=== PATIENT | male | born 1990 | race Caucasian/White ===

== ENCOUNTER 2017-07-29 08:09 | Day surgery (SDC) | payer BC ==
[~2017-07-29 08:09] MED LIST: DIPHENHYDRAMINE HCL 50 MG/ML VIAL ONE; EPINEPHRINE INJ 1 MG/10 ML DISP.SYRIN ONE; FLUMAZENIL INJ 0.5 MG/5 ML VIAL ONE; GLUCAGON,HUMAN RECOMB 1 MG INJ ONE; NALOXONE HCL INJ/PF 0.4 MG/1 ML SDV ONE; ONDANSETRON HCL INJ/PF 4 MG/2 ML SDV ONE
[2017-07-29] MEDS: MIDAZOLAM 2 MG/2 ML INJ ONE ×3 (08:30→08:38)
[2017-07-29] MEDS: FENTANYL CITRATE INJ/PF 100 MCG/2 ML AMPUL ONE ×2 (08:32→08:36)
--- NOTE | 2017-07-29 08:43 | Operative Report ---
Operative Report DATE OF SURGERY: 07/29/17 Operative Report: The risks benefits and alternatives of the procedure explained to the patient in detail and informed consent is obtained.A GIF Olympus video scope was inserted into the patient's mouth and hypopharynx, the esophagus is identified intubated and insufflated, the scope was then advanced through the esophagus stomach and duodenum, retroflexion maneuver is done, the esophagus stomach and first and second portions of the duodenum examined PREOPERATIVE DIAGNOSIS: Gastroesophageal reflux disease POSTOPERATIVE DIAGNOSIS: Esophagitis versus Purcell's status post biopsy. Gastritis status post biopsy rule out Helicobacter pylori OPERATION: EGD with biopsy SURGEON: ERIKA CHAUHAN ANESTHESIA: Moderate Sedation - 6 mg of Versed, 125 mcg of fentanyl. Conscious sedation monitoring time 30 minutes. TISSUE REMOVED OR ALTERED: As noted above. COMPLICATIONS: None. ESTIMATED BLOOD LOSS: None. INTRAOPERATIVE FINDINGS: As noted above. PROCEDURE: Patient tolerated the procedure well. No immediate postprocedure complications are noted. Patient discharged in good condition. Discharge date 07/29/2018. Discharge diet: Regular. Discharge activity: Regular. 2-3 week follow-up to discuss findings. Patient is instructed to call the office or proceed to the emergency room should there be any further problems or questions. We will wait on pathology.
[2017-07-29 09:54] VITALS: BP 101/63
== END 2017-07-29 09:55 | disposition home or self-care (01) ==
LOC: END 08:09
PROVIDERS: ATTEND Internal Medicine Gastroenterology
PROC: 0DB48ZX Excision of Esophagogastric Junction, Via Natural or Artificial Opening Endoscopic, Diagnostic (ICD-10-PCS; 2017-07-29)
PROC: 0DB68ZX Excision of Stomach, Via Natural or Artificial Opening Endoscopic, Diagnostic (ICD-10-PCS; principal; 2017-07-29 08:30)
DX: K29.50 Unspecified chronic gastritis without bleeding (principal); K21.9 Gastro-esophageal reflux disease without esophagitis; Z79.899 Other long term (current) drug therapy
CPT/HCPCS: 43239; 88305 ×2; J2250; J3010; J0171; J1200; J1610; J2310; J2405; J3490

== ENCOUNTER 2017-08-24 10:29 | Day surgery (SDC) | payer BC ==
[~2017-08-24 10:29] MED LIST changes: -DIPHENHYDRAMINE HCL 50 MG/ML VIAL ONE; -EPINEPHRINE INJ 1 MG/10 ML DISP.SYRIN ONE; -FLUMAZENIL INJ 0.5 MG/5 ML VIAL ONE; -GLUCAGON,HUMAN RECOMB 1 MG INJ ONE; -NALOXONE HCL INJ/PF 0.4 MG/1 ML SDV ONE; -ONDANSETRON HCL INJ/PF 4 MG/2 ML SDV ONE; +PROPOFOL INJ 200 MG/20 ML VIAL IV ONE
[2017-08-24] MEDS ORDERED: PROPOFOL INJ 200 MG/20 ML VIAL IV ONE (12:12)
[2017-08-24 12:46] VITALS: BP 122/86
--- NOTE | 2017-08-24 13:10 | Operative Report ---
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 COMPLICATIONS: None. ESTIMATED BLOOD LOSS: None. INTRAOPERATIVE FINDINGS: As noted above. PROCEDURE: Patient tolerated procedure well. No immediate postprocedure complications are noted. Patient discharged in good condition. Discharge date 08/24/2017. Discharge diet: Regular. Discharge activity: Regular. 2-3 week follow-up to discuss findings. Patient is instructed to call the office or proceed to the emergency room should there be any further problems or questions.
== END 2017-08-24 12:50 | disposition home or self-care (01) ==
LOC: END 10:29
PROVIDERS: ATTEND Internal Medicine Gastroenterology
PROC: 0D558ZZ Destruction of Esophagus, Via Natural or Artificial Opening Endoscopic (ICD-10-PCS; principal; 2017-08-24 13:00)
DX: K22.70 Barrett's esophagus without dysplasia (principal); K86.89 Other specified diseases of pancreas; K21.9 Gastro-esophageal reflux disease without esophagitis; F17.210 Nicotine dependence, cigarettes, uncomplicated
CPT/HCPCS: 43270; J2704; 740

== ENCOUNTER 2017-08-26 16:51 | Emergency (ER) | payer BC ==
[2017-08-26 16:55] VITALS: BP 137/85
--- NOTE | 2017-08-26 17:36 | ER Document Report ---
ED Medical Screen (RME) - General Chief Complaint: Abdominal Pain Stated Complaint: BACK PAIN Time Seen by Provider: 08/26/17 17:33 Notes: Patient states that he had an endoscopy approximately 1 month ago that showed that he had "pancreatic cells" growing on his esophagus. He states at the time they were biopsied and he was told they are not cancerous. This was done by Dr. Roe. He states that Dr. Roe performed another endoscopy 2 days ago to burn these "pancreatic cells" off of the esophagus. He states now he has a constant burning pain that starts in the epigastrium and go straight to his back. It is worse with any type of eating or drinking. TRAVEL OUTSIDE OF THE [place] IN LAST 30 DAYS: No - Related Data Allergies/Adverse Reactions: No Known Allergies Allergy (Verified 08/26/17 16:53) Past Medical History - Social History Chew tobacco use (# tins/day): No Frequency of alcohol use: Occasional Drug Abuse: None - Past Medical History Cardiac Medical History: Denies: Hx Coronary Artery Disease, Hx Heart Attack, Hx Hypertension Pulmonary Medical History: Reports: Hx Asthma - CHILD Denies: Hx Bronchitis, Hx COPD, Hx Pneumonia Neurological Medical History: Denies: Hx Cerebrovascular Accident, Hx Seizures Renal/ Medical History: Denies: Hx Peritoneal Dialysis GI Medical History: Reports: Hx Gastroesophageal Reflux Disease Musculoskeltal Medical History: 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 - Immunizations Hx Diphtheria, Pertussis, Tetanus Vaccination: Yes Influenza Administration Date for 07/2017 - 12/2017 Season: 07/12/17 Physical Exam - Vital signs Vitals: Temp Pulse Resp BP Pulse Ox 98.4 F 68 14 137/85 H 98 08/26/17 16:53 08/26/17 16:53 08/26/17 16:53 08/26/17 16:53 08/26/17 16:53 Course - Vital Signs Vital signs: Temp Pulse Resp BP Pulse Ox 98.4 F 68 14 137/85 H 98 08/26/17 16:53 08/26/17 16:53 08/26/17 16:53 08/26/17 16:53 08/26/17 16:53
[2017-08-26 18:04] LABS: ABSOLUTE BASOPHILS # (AUTO) 0.1 10^3/uL (0.0-0.2); ABSOLUTE EOSINOPHILS # (AUTO) 0.2 10^3/uL (0.0-0.6); ABSOLUTE LYMPHOCYTES (AUTO) 2.9 10^3/uL (0.5-4.7); ABSOLUTE MONOCYTES (AUTO) 1.1 10^3/uL (0.1-1.4); ABSOLUTE NEUT (AUTO) 8.5 10^3/uL (1.7-8.2); BASOPHILS % (AUTO) 0.4 % (0-2); EOSINOPHILS % (AUTO) 1.9 % (0-6); HEMOGLOBIN 16.4 g/dL (13.5-17.0); HGB HCT DIFFERENCE 3.2; LYMPHOCYTES % (AUTO) 22.4 % (13-45); MEAN CORPUSCULAR HEMOGLOBIN 33.2 pg (27.0-33.4); MEAN CORPUSCULAR HGB CONC 35.7 g/dL (32.0-36.0); MEAN CORPUSCULAR VOLUME 93 fl (80-97); MONOCYTES % (AUTO) 8.8 % (3-13); RED BLOOD COUNT 4.95 10^6/uL (4.35-5.55); RED CELL DISTRIBUTION WIDTH 12.9 % (11.5-14.0); SEGMENTED NEUTROPHILS % (AUTO) 66.5 % (42-78); WHITE BLOOD COUNT 12.7 10^3/uL (4.0-10.5)
--- NOTE | 2017-08-26 18:07 | RADIOLOGY REPORT (SQ) ---
EXAM DESCRIPTION: CHEST PA/LAT COMPLETED DATE/TIME: 08/26/2017 5:53 pm REASON FOR STUDY: pain COMPARISON: None. EXAM PARAMETERS: NUMBER OF VIEWS: two views TECHNIQUE: Digital Frontal and Lateral radiographic views of the chest acquired. RADIATION DOSE: NA LIMITATIONS: none FINDINGS: LUNGS AND PLEURA: No opacities, masses or pneumothorax. No pleural effusion. MEDIASTINUM AND HILAR STRUCTURES: No masses or contour abnormalities. HEART AND VASCULAR STRUCTURES: Heart normal size. No evidence for failure. BONES: No acute findings. HARDWARE: None in the chest. OTHER: No other significant finding. IMPRESSION: NO SIGNIFICANT RADIOGRAPHIC FINDING IN THE CHEST. TECHNICAL DOCUMENTATION: JOB ID: [id number] [employer]- All Rights Reserved
[2017-08-26 18:27] LABS: ALANINE AMINOTRANSFERASE 89 U/L (21-72); ALKALINE PHOSPHATASE 49 U/L (38-126); ANION GAP 13 (5-19); ASPARTATE AMINO TRANSFERASE 49 U/L (17-59); BILIRUBIN,DIRECT 0.4 mg/dL (0.0-0.4); BILIRUBIN,TOTAL 0.5 mg/dL (0.2-1.3); BLOOD UREA NITROGEN 14 mg/dL (7-20); CALCIUM 10.2 mg/dL (8.4-10.2); CARBON DIOXIDE 29 mmol/L (22-30); CHLORIDE 101 mmol/L (98-107); CREATININE RESULT 1.03 mg/dL (0.52-1.25); GLUCOSE 85 mg/dL (75-110); LIPASE 195.2 U/L (23-300); POTASSIUM 4.7 mmol/L (3.6-5.0); SODIUM 143.2 mmol/L (137-145); TOTAL PROTEIN 7.9 g/dL (6.3-8.2)
[2017-08-26] MEDS ORDERED: FAMOTIDINE 20 MG TABLET ONE (20:37)
[2017-08-26] MEDS ORDERED: LIDOCAINE 2% VISCOUS SOLN 20 ML UDCUP ONE (20:39)
[2017-08-26] MEDS ORDERED: MAG HYDROX/AL HYDROX/SIMETH SUSP 30 ML UDCUP ONE (20:39)
--- NOTE | 2017-08-27 02:50 | ER Document Report ---
ED General - General Chief Complaint: Abdominal Pain Stated Complaint: BACK PAIN Time Seen by Provider: 08/26/17 17:33 Notes: Patient is a 26-year-old male with a past medical history of chronic esophagitis , had an endoscopy done on Thursday with an associated ablation of abnormal tissues in the lower esophagus who presents with constant lower chest, upper abdominal discomfort that radiates through to the back that is been present for the past 4 days ever since he had the endoscopy with ablation performed. Describes it as a dull, constant, aching pain. States it is worsened by eating or drinking. He has been taking lansoprazole with minimal improvement of his symptoms. He has not yet followed up with the GI physician or his primary care doctor regarding today's concerns. He denies any associated vomiting, hematemesis, fever, melena or hematochezia. States this feels like a more severe version of his baseline esophagitis and gastritis TRAVEL OUTSIDE OF THE [place] IN LAST 30 DAYS: No - Related Data Allergies/Adverse Reactions: No Known Allergies Allergy (Verified 08/26/17 16:53) Home Medications: Current Home Medications Escitalopram Oxalate [Escitalopram Oxalate] 1 tab PO DAILY 08/26/17 [History] Gabapentin [Gabapentin] 1 cap PO TID 08/26/17 [History] Past Medical History - General Information source: Patient - Social History Smoking Status: Current Every Day Smoker Chew tobacco use (# tins/day): No Frequency of alcohol use: Occasional Drug Abuse: None Lives with: Spouse/Significant other Family History: Reviewed & Not Pertinent Patient has suicidal ideation: No Patient has homicidal ideation: No - Past Medical History Cardiac Medical History: Denies: Hx Coronary Artery Disease, Hx Heart Attack, Hx Hypertension Pulmonary Medical History: Reports: Hx Asthma - CHILD Denies: Hx Bronchitis, Hx COPD, Hx Pneumonia Neurological Medical History: Denies: Hx Cerebrovascular Accident, Hx Seizures Renal/ Medical History: Denies: Hx Peritoneal Dialysis GI Medical History: Reports: Hx Gastroesophageal Reflux Disease Musculoskeltal Medical History: 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 HENT: Negative for sore throat. Eyes: Negative for visual changes. Cardiovascular: Positive tive for chest pain. Respiratory: Negative for shortness of breath. Gastrointestinal: Positive for abdominal pain and nausea Genitourinary: Negative for dysuria. Musculoskeletal: Negative for back pain. Skin: Negative for rash. Neurological: Negative for headaches, weakness or numbness. 10 point ROS negative except as marked above and in HPI. Physical Exam - Vital signs Vitals: Temp Pulse Resp BP Pulse Ox 98.4 F 68 14 137/85 H 98 08/26/17 16:53 08/26/17 16:53 08/26/17 16:53 08/26/17 16:53 08/26/17 16:53 Interpretation: Normal Notes: PHYSICAL EXAMINATION: GENERAL: Well-appearing, well-nourished and in no acute distress. HEAD: Atraumatic, normocephalic. EYES: Pupils equal round and reactive to light, extraocular movements intact, sclera anicteric, conjunctiva are normal. ENT: nares patent, oropharynx clear without exudates. Moist mucous membranes. NECK: Normal range of motion, supple without lymphadenopathy LUNGS: Breath sounds clear to auscultation bilaterally and equal. No wheezes rales or rhonchi. HEART: Regular rate and rhythm without murmurs ABDOMEN: Soft, nontender, normoactive bowel sounds. No guarding, no rebound. No masses appreciated. EXTREMITIES: Normal range of motion, no pitting or edema. No cyanosis. NEUROLOGICAL: No focal neurological deficits. Moves all extremities spontaneously and on command. PSYCH: Normal mood, normal affect. SKIN: Warm, Dry, normal turgor, no rashes or lesions noted. Course - Re-evaluation Re-evalutation: 08/27/17 02:49 Patient presents with epigastric abdominal pain with associated reflux symptoms most consistent with likely gastritis exacerbated in the setting of a recent ablation of the lower esophagus. Patient has no focal abdominal tenderness on examination. Lipase is normal. No LFT changes. Based on history and exam, I do not suspect ACS, pulmonary embolus, SBO, mesenteric ischemia, acute pancreatitis, biliary pathology, or an abdominal aortic dissection. Patient has had improvement of symptoms here with a GI cocktail. At this time will discharge with return precautions and follow-up recommendations. Verbal discharge instructions given a the bedside and opportunity for questions given. Medication warnings reviewed. Patient is in agreement with this plan and has verbalized understanding of return precautions and the need for primary care follow-up in the next 24-72 hours. - Vital Signs Vital signs: Temp Pulse Resp BP Pulse Ox 98.4 F 68 14 137/85 H 98 08/26/17 16:53 08/26/17 16:53 08/26/17 16:53 08/26/17 16:53 08/26/17 16:53 - Laboratory Result Diagrams: 08/26/17 17:30 08/26/17 17:30 Laboratory results interpreted by me: 08/26/17 08/26/17 17:30 17:30 WBC 12.7 H Absolute Neutrophils 8.5 H ALT 89 H - Diagnostic Test Radiology reviewed: Image reviewed, Reports reviewed Radiology results interpreted by me: 08/27/17 02:49 Chest x-ray: No acute infiltrate or pneumothorax Discharge - Discharge Clinical Impression: Esophagitis, Chest discomfort Condition: Good Disposition: HOME, SELF-CARE Prescriptions: Sucralfate [Carafate 1 gm Tablet] 1 gm PO ACHS #120 tablet
== END 2017-08-26 20:50 | disposition home or self-care (01) ==
LOC: ER 16:51
DX: K20.9 Esophagitis, unspecified (principal); Z98.890 Other specified postprocedural states; R07.9 Chest pain, unspecified; R10.13 Epigastric pain; R11.0 Nausea; F17.200 Nicotine dependence, unspecified, uncomplicated
CPT/HCPCS: 99284; 36415; 83690; 85025; 80053; 71020; J3490

== ENCOUNTER 2017-09-05 16:31 | Inpatient (IN) | payer BC ==
[2017-09-05] MEDS ORDERED: KETOROLAC TROMETHAMINE INJ/PF 30 MG/1 ML SDV IV ONE (17:48)
[2017-09-05] MEDS ORDERED: ONDANSETRON HCL INJ/PF 4 MG/2 ML SDV IV ONE (17:48)
--- NOTE | 2017-09-05 17:49 | ER Document Report ---
ED Medical Screen (RME) - General Chief Complaint: Nausea/Vomiting/Diarrhea Stated Complaint: WEAKNESS Time Seen by Provider: 09/05/17 17:47 TRAVEL OUTSIDE OF THE [place] IN LAST 30 DAYS: No - HPI Notes: 09/05/17 17:48 Dizziness nausea vomiting diffuse muscle aches - Related Data Allergies/Adverse Reactions: No Known Allergies Allergy (Verified 09/05/17 16:53) Past Medical History - Social History Chew tobacco use (# tins/day): No Frequency of alcohol use: Occasional Drug Abuse: None - Past Medical History Cardiac Medical History: Denies: Hx Coronary Artery Disease, Hx Heart Attack, Hx Hypertension Pulmonary Medical History: Reports: Hx Asthma - CHILD Denies: Hx Bronchitis, Hx COPD, Hx Pneumonia Neurological Medical History: Denies: Hx Cerebrovascular Accident, Hx Seizures Renal/ Medical History: Denies: Hx Peritoneal Dialysis GI Medical History: Reports: Hx Gastroesophageal Reflux Disease Musculoskeltal Medical History: 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 - Immunizations Hx Diphtheria, Pertussis, Tetanus Vaccination: Yes Influenza Administration Date for 07/2017 - 12/2017 Season: 07/12/17 Review of Systems - Review of Systems Constitutional: Other - Dizziness nausea vomiting diffuse muscle aches Physical Exam - Vital signs Vitals: Temp Pulse Resp BP Pulse Ox 100.1 F 111 H 20 128/89 H 98 09/05/17 16:51 09/05/17 16:51 09/05/17 16:51 09/05/17 16:51 09/05/17 16:51 - Respiratory Respiratory status: No respiratory distress Chest status: Nontender Breath sounds: Normal Chest palpation: Normal Course - Vital Signs Vital signs: Temp Pulse Resp BP Pulse Ox 100.1 F 111 H 20 128/89 H 98 09/05/17 16:51 09/05/17 16:51 09/05/17 16:51 09/05/17 16:51 09/05/17 16:51
[2017-09-05] MEDS: NORMAL SALINE 1000 ML 1,000 ML IV PRN ×4 (18:10→21:53)
[2017-09-05 18:15] LABS: ABSOLUTE LYMPHOCYTES (AUTO) 0.7 10^3/uL (0.5-4.7); ABSOLUTE MONOCYTES (AUTO) 0.7 10^3/uL (0.1-1.4); ABSOLUTE NEUT (AUTO) 6.2 10^3/uL (1.7-8.2); BASOPHILS % (AUTO) 0.4 % (0-2); EOSINOPHILS % (AUTO) 0.1 % (0-6); HEMATOCRIT 49.5 % (37.9-51.0); HEMOGLOBIN 17.4 g/dL (13.5-17.0); HGB HCT DIFFERENCE 2.7; LYMPHOCYTES % (AUTO) 8.9 % (13-45); MEAN CORPUSCULAR HEMOGLOBIN 32.6 pg (27.0-33.4); MEAN CORPUSCULAR HGB CONC 35.2 g/dL (32.0-36.0); MEAN CORPUSCULAR VOLUME 93 fl (80-97); MONOCYTES % (AUTO) 9.6 % (3-13); RED BLOOD COUNT 5.34 10^6/uL (4.35-5.55); WHITE BLOOD COUNT 7.7 10^3/uL (4.0-10.5)
[2017-09-05 18:24] LABS: APPEARANCE,URINE CLEAR; BILIRUBIN,URINE NEGATIVE (NEGATIVE); GLUCOSE, URINE NEGATIVE (NEGATIVE); KETONES,URINE TRACE mg/dL (NEGATIVE); LEUKOCYTE ESTERASE,URINE NEGATIVE (NEGATIVE); NITRITE,URINE NEGATIVE (NEGATIVE); PROTEIN,URINE 100 mg/dL (NEGATIVE); URINE SPECIFIC GRAVITY 1.032; UROBILINOGEN,URINE NEGATIVE mg/dL (<2.0)
[2017-09-05 18:35] LABS: ALANINE AMINOTRANSFERASE 53 U/L (21-72); ALBUMIN 4.8 g/dL (3.5-5.0); ALKALINE PHOSPHATASE 42 U/L (38-126); ANION GAP 16 (5-19); ASPARTATE AMINO TRANSFERASE 28 U/L (17-59); BILIRUBIN,DIRECT 0.5 mg/dL (0.0-0.4); BILIRUBIN,TOTAL 0.8 mg/dL (0.2-1.3); BLOOD UREA NITROGEN 13 mg/dL (7-20); CALCIUM 9.5 mg/dL (8.4-10.2); CARBON DIOXIDE 28 mmol/L (22-30); CHLORIDE 96 mmol/L (98-107); CREATINE KINASE 190 U/L (55-170); CREATININE RESULT 1.12 mg/dL (0.52-1.25); GLUCOSE 115 mg/dL (75-110); LIPASE 39.6 U/L (23-300); POTASSIUM 4.3 mmol/L (3.6-5.0); SODIUM 139.5 mmol/L (137-145)
[2017-09-05 18:47] LABS: URINE BARBITURATES SCREEN NEGATIVE; URINE METHADONE SCREEN NEGATIVE; URINE OPIATES LOW NEGATIVE; URINE PHENCYCLIDINE SCREEN NEGATIVE
--- NOTE | 2017-09-05 19:08 | ER Document Report ---
ED General - General Chief Complaint: Nausea/Vomiting/Diarrhea Stated Complaint: WEAKNESS Time Seen by Provider: 09/05/17 17:47 Mode of Arrival: Ambulatory Information source: Patient Notes: 27-year-old male presents with complaints of left lower quadrant abdominal pain diarrhea fever of now 3 day duration. Patient states he has had about 3 episodes of diarrhea as body cramps now. Notes a family history of ulcerative colitis TRAVEL OUTSIDE OF THE [place] IN LAST 30 DAYS: No - HPI Onset: Other Onset/Duration: Intermittent Quality of pain: Cramping Severity: Mild Pain Level: 1 Associated symptoms: Body/muscle aches, Diarrhea, Fever, Nausea, Vomiting Exacerbated by: Denies Relieved by: Denies Similar symptoms previously: No Recently seen / treated by doctor: No - Related Data Allergies/Adverse Reactions: No Known Allergies Allergy (Verified 09/05/17 16:53) Past Medical History - Social History Smoking Status: Current Some Day Smoker Cigarette use (# per day): Yes Chew tobacco use (# tins/day): No Smoking Education Provided: No Frequency of alcohol use: Occasional Drug Abuse: None Family History: Reviewed & Not Pertinent Patient has suicidal ideation: No Patient has homicidal ideation: No - Past Medical History Cardiac Medical History: Denies: Hx Coronary Artery Disease, Hx Heart Attack, Hx Hypertension Pulmonary Medical History: Reports: Hx Asthma - CHILD Denies: Hx Bronchitis, Hx COPD, Hx Pneumonia Neurological Medical History: Denies: Hx Cerebrovascular Accident, Hx Seizures Renal/ Medical History: Denies: Hx Peritoneal Dialysis GI Medical History: Reports: Hx Gastroesophageal Reflux Disease Musculoskeltal Medical History: 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 - Immunizations Hx Diphtheria, Pertussis, Tetanus Vaccination: Yes Review of Systems - Review of Systems Notes: REVIEW OF SYSTEMS: CONSTITUTIONAL : Admits to fever EENT: Denies eye, ear, throat, or mouth pain or symptoms. Denies nasal or sinus congestion or discharge. Denies throat, tongue, or mouth swelling or difficulty swallowing. CARDIOVASCULAR: Denies chest pain. Denies palpitations or racing or irregular heart beat. Denies ankle edema. RESPIRATORY: Denies cough, cold, or chest congestion. Denies shortness of breath, difficulty breathing, or wheezing. GASTROINTESTINAL: Admits to abdominal pain nausea vomiting diarrhea GENITOURINARY: Denies difficulty urinating, painful urination, burning, frequency, blood in urine, or discharge. MUSCULOSKELETAL: Denies back or neck pain or stiffness. Denies joint pain or swelling. SKIN: Denies rash, lesions or sores. HEMATOLOGIC : Denies easy bruising or bleeding. LYMPHATIC: Denies swollen, enlarged glands. NEUROLOGICAL: Denies confusion or altered mental status. Denies passing out or loss of consciousness. Denies dizziness or lightheadedness. Denies headache. Denies weakness or paralysis or loss of use of either side. Denies problems with gait or speech. Denies sensory loss, numbness, or tingling. Denies seizures. PSYCHIATRIC: Denies anxiety or stress. Denies depression, suicidal ideation, or homicidal ideation. ALL OTHER SYSTEMS REVIEWED AND NEGATIVE. Dictation was performed using [employer] voice recognition software PHYSICAL EXAMINATION: GENERAL: Well-appearing, well-nourished and in no acute distress. HEAD: Atraumatic, normocephalic. EYES: Pupils equal round and reactive to light, extraocular movements intact, sclera anicteric, conjunctiva are normal. ENT: Nares patent, oropharynx clear without exudates. Moist mucous membranes. NECK: Normal range of motion, supple without lymphadenopathy LUNGS: Breath sounds clear to auscultation bilaterally and equal. No wheezes rales or rhonchi. HEART: Regular rate and rhythm without murmurs ABDOMEN: Soft, he is non-tender in the left lower quadrant no rebound no guarding no peritoneal signs at this time Musculoskeletal: Normal range of motion, no pitting or edema. No cyanosis. NEUROLOGICAL: Cranial nerves grossly intact. Normal speech, normal gait. Normal sensory, motor exams PSYCH: Normal mood, normal affect. SKIN: Warm, Dry, normal turgor, no rashes or lesions noted. Physical Exam - Vital signs Vitals: Temp Pulse Resp BP Pulse Ox 100.1 F 111 H 20 128/89 H 98 09/05/17 16:51 09/05/17 16:51 09/05/17 16:51 09/05/17 16:51 09/05/17 16:51 Course - Re-evaluation Re-evalutation: 09/05/17 19:07 Patient notes the pain is intermittent, overall he looks quite well but is noted to have a temperature of 100.[address] is pending Patient has had a colonoscopy 8 years ago and ulcers were noted at that time, endoscopy was performed 3 weeks ago which was normal 09/05/17 20:[address] is consistant with colitis and appendicits. Surgeon contacted who will admit 09/05/17 20:43 - Vital Signs Vital signs: Temp Pulse Resp BP Pulse Ox 100.1 F 111 H 20 128/89 H 98 09/05/17 16:51 09/05/17 16:51 09/05/17 16:51 09/05/17 16:51 09/05/17 16:51 - Laboratory Result Diagrams: 09/05/17 18:00 09/05/17 18:00 Laboratory results interpreted by me: 09/05/17 09/05/17 09/05/17 18:00 18:00 18:00 Hgb 17.4 H Seg Neutrophils % 81.0 H Lymphocytes % 8.9 L Chloride 96 L Glucose 115 H Direct Bilirubin 0.5 H Creatine Kinase 190 H Urine Protein 100 H Urine Ketones TRACE H - Diagnostic Test Radiology reviewed: Image reviewed, Reports reviewed Discharge - Discharge Clinical Impression: Colitis Appendicitis Qualifiers: Appendicitis type: acute appendicitis Acute appendicitis type: with generalized peritonitis Qualified Code(s): K35.2 - Acute appendicitis with generalized peritonitis; K35.0 - Acute appendicitis with generalized peritonitis Condition: Stable Disposition: ADMITTED INPATIENT Admitting Provider: Surgicalist Unit Admitted: Surgical Floor
--- NOTE | 2017-09-05 20:26 | RADIOLOGY REPORT (SQ) ---
EXAM DESCRIPTION: CT ABD/PELVIS WITH IV ONLY COMPLETED DATE/TIME: 09/05/2017 8:05 pm REASON FOR STUDY: fh of ulcerative colitis, fever, diarrhea COMPARISON: None. TECHNIQUE: CT scan of the abdomen and pelvis performed using helical scanning technique with dynamic intravenous contrast injection. No oral contrast. Images reviewed with lung, soft tissue, and bone windows. Reconstructed coronal and sagittal MPR images reviewed. Delayed images for evaluation of the urinary system also acquired. All images stored on PACS. All CT scanners at this facility use dose modulation, iterative reconstruction, and/or weight based d osing when appropriate to reduce radiation dose to as low as reasonably achievable (ALARA). [facility]: Dose Right [facility]: CareDose [facility]: Dose Right [facility]: Teradose 4D [facility]: [employer] Medical CONTRAST TYPE AND DOSE: contrast/concentration: Isovue 370.00 mg/ml; Total Contrast Delivered: 94.0 ml; Total Saline Delivered: 71.0 ml RENAL FUNCTION: BUN 13; creatinine 1.12 RADIATION DOSE: CT Rad equipment meets quality standard of care and radiation dose reduction techniq ues were employed. CTDIvol: 7.5 - 10.6 mGy. DLP: 931 mGy-cm.. LIMITATIONS: None. FINDINGS: LOWER CHEST: No significant findings. No nodules or infiltrates. LIVER: Normal size. No masses. No dilated ducts. SPLEEN: Normal size. No focal lesions. PANCREAS: No masses. No significant calcifications. No adjacent inflammation or peripancreatic fluid collections. Pancreatic duct not dilated. GALLBLADDER: No identified stones by CT criteria. No inflammatory changes to suggest cholecystitis. ADRENAL GLANDS: No significant masses or asymmetry. RIGHT KIDNEY AND URETER: No solid masses. No significant calcifications. No hydronephrosis or hyd roureter. LEFT KIDNEY AND URETER: No solid masses. No significant calcifications. No hydronephrosis or hydr oureter. AORTA AND VESSELS: No aneurysm. No dissection. Renal arteries, SMA, celiac without stenosis. RETROPERITONEUM: No retroperitoneal adenopathy, hemorrhage or masses. BOWEL AND PERITONEAL CAVITY: Inflammatory changes are seen about the colon, most significantly at the hepatic flexure, but extending to the cecum. The appendix appears normal in caliber, but is fluid-f illed and demonstrates mural hyperemia with adjacent mesenteric inflammatory change. PELVIS: No mass. No free fluid. Normal bladder. ABDOMINAL WALL: No masses. No hernias. BONES: No significant or acute findings. OTHER: No other significant finding. IMPRESSION: Right colitis with early appendicitis. TECHNICAL DOCUMENTATION: JOB ID: [id number] Quality ID # [id number]: Final reports with documentation of one or more dose reduction techniques (e.g., Au tomated exposure control, adjustment of the mA and/or kV according to patient size, use of iterative reconstruction technique) 2010 [employer]- All Rights Reserved
[2017-09-05] MEDS ORDERED: IMIPENEM/CILASTATIN SODIUM INJ 500 MG VIAL IV ONE (20:42)
[2017-09-05] MEDS ORDERED: METRONIDAZOLE 500 MG/NS RTU 250 MG in CONTAINER,EMPTY 1 EACH IV SCH (20:45)
[2017-09-05] MEDS ORDERED: ONDANSETRON HCL INJ/PF 4 MG/2 ML SDV IV PRN (21:15)
[2017-09-05] MEDS ORDERED: METRONIDAZOLE 500 MG/NS RTU 100 ML IV ONE (21:15)
[2017-09-05] MEDS ORDERED: PIPERACILLIN/TAZOBACTAM 3.375 GM VIAL IV PRN (21:15)
[2017-09-05] MEDS: HYDROMORPHONE HCL INJ/PF 2 MG/ML AMPULE IV PRN (23:08)
[2017-09-05] MEDS ORDERED: DIPHENHYDRAMINE HCL 50 MG/ML VIAL IV ONE (23:30)
[2017-09-06] MEDS ORDERED: GABAPENTIN 300 MG CAPSULE PO ONE (00:45)
[2017-09-06] MEDS: POTASSI CL 20 MEQ/D5-1/2NS 1L 1000 ML IV PRN ×2 (00:57→13:09)
[2017-09-06] MEDS ORDERED: PIPERACILLIN/TAZOBACTAM 3.375 GM VIAL IV ONE (03:45)
[2017-09-06] MEDS: HYDROMORPHONE HCL INJ/PF 2 MG/ML AMPULE IV PRN ×4 (04:27→20:49)
[2017-09-06] MEDS: PIPERACILLIN SODIUM/TAZOBACTAM 3.375 GM in NORMAL SALINE 100 ML IV SCH ×3 (04:28→17:52)
[2017-09-06] MEDS ORDERED: ACETAMINOPHEN 325 MG TABLET PO PRN (04:48)
[2017-09-06] MEDS: METRONIDAZOLE 500 MG/NS RTU 100 ML IV SCH ×3 (05:06→20:49)
[2017-09-06 05:16] LABS: HEMATOCRIT 37.7 % (37.9-51.0); HGB HCT DIFFERENCE 2.8; MEAN CORPUSCULAR HEMOGLOBIN 32.8 pg (27.0-33.4); MEAN CORPUSCULAR HGB CONC 35.8 g/dL (32.0-36.0); MEAN CORPUSCULAR VOLUME 92 fl (80-97); RED BLOOD COUNT 4.13 10^6/uL (4.35-5.55); WHITE BLOOD COUNT 4.6 10^3/uL (4.0-10.5)
[2017-09-06 05:45] LABS: ANION GAP 11 (5-19); BLOOD UREA NITROGEN 11 mg/dL (7-20); CALCIUM 7.6 mg/dL (8.4-10.2); CARBON DIOXIDE 21 mmol/L (22-30); CHLORIDE 106 mmol/L (98-107); CREATININE RESULT 1.09 mg/dL (0.52-1.25); GLUCOSE 97 mg/dL (75-110); POTASSIUM 3.7 mmol/L (3.6-5.0); SODIUM 137.5 mmol/L (137-145)
[2017-09-06 05:51] LABS: ABSOLUTE EOSINOPHILS# (MANUAL) 0.1 10^3/uL (0.0-0.6); BAND NEUTROPHILS % (MANUAL) 5 % (3-5); BASOPHILS % (MANUAL) 0 % (0-2); EOSINOPHILS % (MANUAL) 2 % (0-6); LYMPHOCYTES % (MANUAL) 14 % (13-45); TOTAL CELLS COUNTED 100
[2017-09-06 05:52] LABS: RBC MORPHOLOGY COMMENT NORMO-CYTIC/CHROMIC; TOXIC GRANULATION SLIGHT; TOXIC VACUOLATION PRESENT
[2017-09-06 06:15] LABS: HEMOGLOBIN 13.5 g/dL (13.5-17.0)
[2017-09-06] MEDS: ESCITALOPRAM OXALATE 10 MG TABLET PO SCH (09:09)
[2017-09-06] MEDS: ENOXAPARIN SODIUM INJ 40 MG/0.4 ML DISP.SYRIN SUBCUT SCH (09:42)
[2017-09-06] MEDS: GABAPENTIN 300 MG CAPSULE PO SCH ×3 (09:42→17:51)
[2017-09-06] MEDS: LANSOPRAZOLE 30 MG TAB.RAP.DR PO SCH (09:43)
--- NOTE | 2017-09-06 12:05 | PDOC PROGRESS REPORT ---
Subjective Progress Note for:: 09/06/17 Subjective:: feels some better , no nausea, no pain now Physical Exam Vital Signs: Temp Pulse Resp BP Pulse Ox 98.5 F 71 16 111/59 L 95 09/06/17 07:29 09/06/17 07:29 09/06/17 07:29 09/06/17 07:29 09/06/17 07:29 Intake & Output 09/05/17 09/06/17 09/07/17 06:59 06:59 06:59 Intake Total 476 Balance 476 Weight 89.5 kg GI/Abdominal exam: PRESENT: other - Soft, nontender Results Laboratory Results: 09/06/17 09/06/17 09/06/17 04:30 04:59 04:59 WBC 4.6 RBC 4.13 L Hgb 13.5 D Hct 37.7 L MCV 92 MCH 32.8 MCHC 35.8 RDW 13.0 Plt Count 136 L Seg Neutrophils % Not Reportable Lymphocytes % Not Reportable Monocytes % Not Reportable Eosinophils % Not Reportable Basophils % Not Reportable Absolute Neutrophils Not Reportable Absolute Lymphocytes Not Reportable Absolute Monocytes Not Reportable Absolute Eosinophils Not Reportable Absolute Basophils Not Reportable Sodium 137.5 Potassium 3.7 Chloride 106 Carbon Dioxide 21 L Anion Gap 11 BUN 11 Creatinine 1.09 Est GFR ( Amer) > 60 Est GFR (Non-Af Amer) > 60 Glucose 97 Calcium 7.6 L Stool Occult Blood POSITIVE Impressions: Abdomen/Pelvis CT 09/05/17 19:06 IMPRESSION: Right colitis with early appendicitis. Assessment & Plan - Plan Summary Plan Summary: Colitis - involving - Right colon up to the cecum involving Appendix ( not appendicitis, - part of colitis ) Possible Crohn's colitis, possible infectious , C DIFF NEGATIVE Plan - Continue IV Zosyn GI Consult AM - for possible IBD, Needs colonoscopy and further management by GI .
[2017-09-06 12:06] LABS: MEAN CORPUSCULAR HEMOGLOBIN 32.6 pg (27.0-33.4); MEAN CORPUSCULAR VOLUME 93 fl (80-97); RED CELL DISTRIBUTION WIDTH 12.8 % (11.5-14.0); WHITE BLOOD COUNT 4.6 10^3/uL (4.0-10.5)
[2017-09-06 12:27] LABS: ANION GAP 9 (5-19); BLOOD UREA NITROGEN 9 mg/dL (7-20); CALCIUM 7.9 mg/dL (8.4-10.2); CARBON DIOXIDE 26 mmol/L (22-30); CHLORIDE 107 mmol/L (98-107); CREATININE RESULT 1.07 mg/dL (0.52-1.25); GLUCOSE 85 mg/dL (75-110); POTASSIUM 3.8 mmol/L (3.6-5.0)
--- NOTE | 2017-09-06 15:53 | HISTORY AND PHYSICAL E ---
History and Physical NAME: DEIDRE ADAMES : 1990 AGE: 27Y ADMITTED: 09/05/2017 ROOM: 413 CHIEF COMPLAINT: A 27-year-old male patient who basically being admitted to the hospital through the emergency room for abdominal pain, diarrhea, and fever. HISTORY OF PRESENT ILLNESS: This 27-year-old otherwise healthy male patient presenting to the emergency room with one-day history of diarrhea multiple times, abdominal cramping and sweating at home, came to the emergency room. Upon evaluation in the emergency room, CT scan revealed colitis involving most of the right colon including edema around the appendix. So patient is being admitted for a possible ulcerative colitis or Crohn's with acute flareup. The patient around 2007 was told to have ulcerative colitis by [employer]. He had an episode of abdominal pain, diarrhea. He had a colonoscopy done. He was told he had ulcerative colitis, other details are not available, and apparently he took some probiotic. As per the patient, he did not take any colitis medications and as per the patient's history, no other pain or no other episodes of any colitis after 2007 episode and he did not followup with [employer] previously, but he does have one [employer] locally here as per the patient. PAST MEDICAL HISTORY: In 2007 he was told to have ulcerative colitis but no other issues. PAST SURGICAL HISTORY: None. FAMILY HISTORY: No history of inflammatory bowel disease. REVIEW OF SYSTEMS: As per examination. PHYSICAL EXAMINATION: GENERAL: A 27-year-old male patient not in any distress, currently afebrile. HEAD/NECK: Revealed no lymphadenopathy or masses. RESPIRATORY: Both lungs clear to auscultation. CARDIOVASCULAR: Both heart sounds regular. No murmurs or gallops. ABDOMINAL: He has a very soft abdomen with minimal tenderness in right paraumbilical area. No rebound, no masses palpable. No palpable hernia. EXTREMITIES: Warm and performed. DIAGNOSTIC DATA: Revealed hemoglobin of 13 gm, white count around close to 5 and serum chemistry within normal range. A CT scan abdomen and pelvis revealed which reveals inflammation of the right colon with edema, mucosal thickening, and also there is an appendix which is fluid filled and there is a mural edema around the appendix. I believe this is most likely inflammatory process of the colitis extending up in the cecum. Small bowel appeared to be normal. Left colon appeared to be normal. IMPRESSION: Overall, essentially right-sided involvement of the colitis. I do not think it is ulcerative colitis. It is possible that he could have Crohn disease and Crohn colitis flareup and other etiology could be infectious enterocolitis. PLAN: In any case, the plan is to admit him and start on IV antibiotic, Zosyn. Stool for cultures. Stool for C diff. IV hydration. Requested Gastroenterology consultation tomorrow. Apparently, he has a local [employer] for a possible repeat colonoscopy. The potential diagnosis of possible Crohn's; and based on that, he will need further therapy. Even though appendix seems to be inflamed, it is part of the colitis itself. Appendectomy is not indicated at this point and it is not being done because of edematous and inflamed cecum, he will not heal without a fistula, so not all for appendectomy. All of this was explained to the patient and the patient's family. They completely understand and agree with the plan and management. DICTATING PHYSICIAN: KENNEDY SANCHEZ M.D. [id number] PHY#: [id number] ID: [id number] JOB#: [id number] ACCT: [id number] cc:KENNEDY SANCHEZ M.D. >
[2017-09-07] MEDS: HYDROMORPHONE HCL INJ/PF 2 MG/ML AMPULE IV PRN ×6 (01:14→23:37)
[2017-09-07] MEDS: POTASSI CL 20 MEQ/D5-1/2NS 1L 1000 ML IV PRN ×2 (01:15→15:52)
[2017-09-07] MEDS: PIPERACILLIN SODIUM/TAZOBACTAM 3.375 GM in NORMAL SALINE 100 ML IV SCH ×3 (01:15→17:59)
--- NOTE | 2017-09-07 03:06 | Physician Advisory Note ---
Physician Advisor ProgressNote .: Pursuant to the plan for [facility], I have reviewed the medical record for this patient. Physician Advisor Statement: Very nice documentation of attending's clinical thinking. Status: appropriate to change to Inpatient status as of 09/06 PM. Discussion: 27yo with colitis picture, previous dx of IBD, acute onset N/V/D/ fevers, came in w/T100.1, tachycardia, hemoconcentrated H/H. Given 4L of IVF boluses in ED. Attending ordered IV abx, IVF @125 containing KCl, stool cx, GI consult, f/u labs. Next day, 09/06, pt feeling "some better", but had max temp 102.3 that AM, & nursing notes of 09/06 document continued diarrhea (7x on 09/06), abdominal tenderness/pain, episodes of retching. He has required IV Dilaudid 1mg for pain control 4x on 09/06 and continues to need this 09/07 AM. CK
[2017-09-07 04:34] LABS: HEMATOCRIT 38.4 % (37.9-51.0); HEMOGLOBIN 13.5 g/dL (13.5-17.0); HGB HCT DIFFERENCE 2.1; MEAN CORPUSCULAR HEMOGLOBIN 32.8 pg (27.0-33.4); MEAN CORPUSCULAR HGB CONC 35.1 g/dL (32.0-36.0); MEAN CORPUSCULAR VOLUME 93 fl (80-97); RED BLOOD COUNT 4.11 10^6/uL (4.35-5.55); RED CELL DISTRIBUTION WIDTH 13.1 % (11.5-14.0); WHITE BLOOD COUNT 5.5 10^3/uL (4.0-10.5)
[2017-09-07 04:56] LABS: ANION GAP 7 (5-19); BLOOD UREA NITROGEN 5 mg/dL (7-20); CALCIUM 8.4 mg/dL (8.4-10.2); CARBON DIOXIDE 27 mmol/L (22-30); CHLORIDE 109 mmol/L (98-107); CREATININE RESULT 1.01 mg/dL (0.52-1.25); GLUCOSE 99 mg/dL (75-110); POTASSIUM 4.4 mmol/L (3.6-5.0); SODIUM 142.5 mmol/L (137-145)
[2017-09-07] MEDS: METRONIDAZOLE 500 MG/NS RTU 100 ML IV SCH ×3 (06:34→21:41)
--- NOTE | 2017-09-07 06:56 | PDOC PROGRESS REPORT ---
Subjective Progress Note for:: 09/07/17 Subjective:: Feeling better No pain Less duirrhea Physical Exam Vital Signs: Temp Pulse Resp BP Pulse Ox 98.6 F 65 18 114/68 100 09/07/17 00:00 09/07/17 00:00 09/07/17 00:00 09/07/17 00:00 09/07/17 00:00 Intake & Output 09/05/17 09/06/17 09/07/17 06:59 06:59 06:59 Intake Total 476 3326 Output Total 200 Balance 476 3126 Weight 89.5 kg GI/Abdominal exam: PRESENT: other - Soft, nontender Results Laboratory Results: 09/07/17 03:48 09/07/17 03:48 09/06/17 09/06/17 09/07/17 11:25 11:25 03:48 WBC 4.6 5.5 RBC 4.30 L 4.11 L Hgb 14.0 13.5 Hct 40.0 38.4 MCV 93 93 MCH 32.6 32.8 MCHC 35.0 35.1 RDW 12.8 13.1 Plt Count 145 L 155 Sodium 142.0 Potassium 3.8 Chloride 107 Carbon Dioxide 26 Anion Gap 9 BUN 9 Creatinine 1.07 Est GFR ( Amer) > 60 Est GFR (Non-Af Amer) > 60 Glucose 85 Calcium 7.9 L 09/07/17 03:48 WBC RBC Hgb Hct MCV MCH MCHC RDW Plt Count Sodium 142.5 Potassium 4.4 Chloride 109 H Carbon Dioxide 27 Anion Gap 7 BUN 5 L Creatinine 1.01 Est GFR ( Amer) > 60 Est GFR (Non-Af Amer) > 60 Glucose 99 Calcium 8.4 Impressions: Abdomen/Pelvis CT 09/05/17 19:06 IMPRESSION: Right colitis with early appendicitis. Assessment & Plan - Plan Summary Plan Summary: Colitis -right colon /INFECTIOUS/ / Crohn's GI consult for colonoscopy
[2017-09-07] MEDS: ESCITALOPRAM OXALATE 10 MG TABLET PO SCH (08:50)
[2017-09-07] MEDS: ENOXAPARIN SODIUM INJ 40 MG/0.4 ML DISP.SYRIN SUBCUT SCH (10:38)
[2017-09-07] MEDS: LANSOPRAZOLE 30 MG TAB.RAP.DR PO SCH (10:38)
[2017-09-07] MEDS: GABAPENTIN 300 MG CAPSULE PO SCH ×3 (10:38→17:59)
[2017-09-07] MEDS ORDERED: PEG 3350/NA SULF,BICARB,CL/KCL 4000 ML PO ONE (11:00)
[2017-09-07] MEDS ORDERED: MIDAZOLAM 2 MG/2 ML INJ ONE (12:54)
[2017-09-07] MEDS ORDERED: PROPOFOL INJ 200 MG/20 ML VIAL IV ONE ×2 (12:54→14:39)
--- NOTE | 2017-09-07 13:04 | PDOC PROGRESS REPORT ---
Subjective Progress Note for:: 09/07/17 Subjective:: No abdominal pain Diarrhea - much less Physical Exam Vital Signs: Temp Pulse Resp BP Pulse Ox 98.6 F 65 18 114/68 100 09/07/17 00:00 09/07/17 00:00 09/07/17 00:00 09/07/17 00:00 09/07/17 00:00 Intake & Output 09/05/17 09/06/17 09/07/17 06:59 06:59 06:59 Intake Total 476 3326 Output Total 200 Balance 476 3126 Weight 89.5 kg GI/Abdominal exam: PRESENT: other - Soft Nontender Normal bowel sounds Results Laboratory Results: 09/07/17 03:48 09/07/17 03:48 09/06/17 09/06/17 09/07/17 11:25 11:25 03:48 WBC 4.6 5.5 RBC 4.30 L 4.11 L Hgb 14.0 13.5 Hct 40.0 38.4 MCV 93 93 MCH 32.6 32.8 MCHC 35.0 35.1 RDW 12.8 13.1 Plt Count 145 L 155 Sodium 142.0 Potassium 3.8 Chloride 107 Carbon Dioxide 26 Anion Gap 9 BUN 9 Creatinine 1.07 Est GFR ( Amer) > 60 Est GFR (Non-Af Amer) > 60 Glucose 85 Calcium 7.9 L 09/07/17 03:48 WBC RBC Hgb Hct MCV MCH MCHC RDW Plt Count Sodium 142.5 Potassium 4.4 Chloride 109 H Carbon Dioxide 27 Anion Gap 7 BUN 5 L Creatinine 1.01 Est GFR ( Amer) > 60 Est GFR (Non-Af Amer) > 60 Glucose 99 Calcium 8.4 Impressions: Abdomen/Pelvis CT 09/05/17 19:06 IMPRESSION: Right colitis with early appendicitis. Assessment & Plan - Diagnosis (1) Colitis Is this a current diagnosis for this admission?: Yes Plan: She is feeling better but still having loose bloody diarrhea stools. Plan: 1. Spoken with Dr. Roe, gastrologist, scared for the patient in the past. He is agreed to proceed with colonoscopy while the patient is currently hospitalized. 2. No indication for surgical intervention. Patient ready for discharge tomorrow will proceed, otherwise anticipate transfer to internal medicine service. - Plan Summary Plan Summary: Colitis - involving right colon - Crohn's / ? Infectious GI Consult for colonoscopy and further management .
[2017-09-07] MEDS ORDERED: LIDOCAINE 2% INJ-PF (20 MG/ML) 10 ML AMPUL ONE (13:29)
[2017-09-07] MEDS ORDERED: ONDANSETRON HCL INJ/PF 4 MG/2 ML SDV ONE (13:29)
[2017-09-07] MEDS ORDERED: FENTANYL CITRATE INJ/PF 100 MCG/2 ML AMPUL IV PRN ×3 (14:34)
[2017-09-07] MEDS ORDERED: DIPHENHYDRAMINE HCL 50 MG/ML VIAL IV PRN (14:34)
[2017-09-07] MEDS ORDERED: PROMETHAZINE HCL INJ 25 MG/1 ML VIAL IV PRN (14:34)
--- NOTE | 2017-09-07 14:34 | Operative Report ---
Operative Report DATE OF SURGERY: 09/07/17 Operative Report: The risks, benefits and alternatives of the procedure including risks of bleeding, perforation requiring surgery are explained to the patient in detail and informed consent is obtained. Patient is taken back to the operating room and placed in the left, lateral decubital position. Timeout was called. Propofol medications administered. A rectal examination is done which did not reveal any masses, tears or fissures. An Olympus videoscope was inserted into the patient's rectum. The scope was then carefully advanced all the way to the cecum. The cecum was identified by the usual anatomical landmarks including the ileocecal valve as well as the appendiceal office. Photodocumentation was obtained. Prep is good. Intubation of the terminal ileum is done. The scope was then sequentially pulled back via the various segments of the colon including the ascending colon, hepatic flexure, transverse colon, splenic flexure, descending colon finding to the rectosigmoid portions of the colon. Retroflexion maneuvers performed. PREOPERATIVE DIAGNOSIS: Abdominal pain, previous history of colitis. Abnormal CT scan showing thickening on the right side of the colon. POSTOPERATIVE DIAGNOSIS: Normal terminal ileum. Colitis noted especially on the right side suspicious for possible infectious colitis possibly Salmonella. Biopsies taken to rule out ulcerative colitis. Biopsies taken to rule out ischemic colitis. Rectosigmoid polyp attempted snare polypectomy, polyp retrieved. OPERATION: Colonoscopy with snare polypectomy. Colonoscopy with biopsy SURGEON: ERIKA CHAUHAN ANESTHESIA: LMAC TISSUE REMOVED OR ALTERED: As noted above. COMPLICATIONS: None. ESTIMATED BLOOD LOSS: None. INTRAOPERATIVE FINDINGS: As described above. PROCEDURE: Patient tolerated procedure well. No immediate postprocedure complications are noted. Patient sent back to his room in good condition. We will wait on biopsies. Stool culture demonstrates Salmonella colitis. He may require antibiotics although he seems to be clinically improving may want to hold off Surveillance colonoscopy in 3-5 years
[2017-09-08] MEDS: POTASSI CL 20 MEQ/D5-1/2NS 1L 1000 ML IV PRN ×2 (02:14→13:45)
[2017-09-08] MEDS: PIPERACILLIN SODIUM/TAZOBACTAM 3.375 GM in NORMAL SALINE 100 ML IV SCH ×3 (02:14→17:16)
[2017-09-08] MEDS ORDERED: LANSOPRAZOLE 30 MG TAB.RAP.DR PO SCH (06:00)
[2017-09-08] MEDS: METRONIDAZOLE 500 MG/NS RTU 100 ML IV SCH ×2 (06:41→13:45)
[2017-09-08] MEDS: ESCITALOPRAM OXALATE 10 MG TABLET PO SCH (08:36)
[2017-09-08] MEDS: ENOXAPARIN SODIUM INJ 40 MG/0.4 ML DISP.SYRIN SUBCUT SCH (09:29)
[2017-09-08] MEDS: GABAPENTIN 300 MG CAPSULE PO SCH ×3 (09:30→17:16)
--- NOTE | 2017-09-08 13:50 | PDOC PROGRESS REPORT ---
Subjective Progress Note for:: 09/08/17 Subjective:: patient is seen in follow up doing well tolerating his diet blood streaking in stools biopsies consistent with infectious colitis likely due to salmonella polyp removed as well patient is feeling better should be able to have antibiotics can converted to oral and can be discharged Reason For Visit: COLITIS Physical Exam Vital Signs: Temp Pulse Resp BP Pulse Ox 98.3 F 61 15 114/68 100 09/08/17 00:00 09/08/17 00:00 09/08/17 00:00 09/08/17 00:00 09/08/17 00:00 Intake & Output 09/07/17 09/08/17 09/09/17 06:59 06:59 06:59 Intake Total 4826 4614 Output Total 200 Balance 4626 4614 General appearance: PRESENT: no acute distress, well-developed, well-nourished Head exam: PRESENT: atraumatic, normocephalic Eye exam: PRESENT: EOMI, PERRLA Mouth exam: PRESENT: moist Neck exam: ABSENT: meningismus, tenderness, thyromegaly Respiratory exam: PRESENT: clear to auscultation christopher, symmetrical, unlabored. ABSENT: tachypnea, wheezes Cardiovascular exam: PRESENT: +S1, +S2 GI/Abdominal exam: PRESENT: soft. ABSENT: rebound, rigid, tenderness Extremities exam: PRESENT: full ROM. ABSENT: calf tenderness Musculoskeletal exam: PRESENT: full ROM Neurological exam: PRESENT: oriented to time, oriented to situation, reflexes normal Psychiatric exam: PRESENT: appropriate affect Skin exam: PRESENT: normal color. ABSENT: mottled, urticaria, vesicles Results Laboratory Results: 09/07/17 03:48 09/07/17 03:48 Impressions: Abdomen/Pelvis CT 09/05/17 19:06 IMPRESSION: Right colitis with early appendicitis. Assessment & Plan - Diagnosis (1) Colitis Is this a current diagnosis for this admission?: Yes Plan: due to salmonella infection clinically improved can be discharged convert to oral antibiotics patient follow up as outpatient - Time Time Spent with patient: 15-24 minutes
[2017-09-08] MEDS ORDERED: INFLUENZA ADLT QUAD (36MOS+) 2017-18 VAC 0.5 ML SYR IM PRN (19:17)
[2017-09-08 19:21] VITALS: BP 105/63
--- NOTE | 2017-09-08 20:10 | PDOC DISCHARGE SUMMARY ---
Discharge Summary (SDC) - Discharge Final Diagnosis: Ulcerative colitis/infectious colitis Date of Surgery: 09/07/17 Discharge Date: 09/08/17 Condition: Stable Forms: Discharge POC-Adult Treatment or Instructions: Per GI recommendation we will place the patient on p.o. Cipro and Flagyl for 10 days Referrals: ERIKA CHAUHAN MD [ACTIVE STAFF] - Discharge Diet: As Tolerated Respiratory Treatments at Home: Deep Breathing/Coughing Discharge Activity: Activity As Tolerated Home Care Assistance: None Needed Report the Following to Your Physician Immediately: Shortness of Breath, Nausea , Vomiting, Increase in Pain, Fever over 101 Degrees
[2017-09-08] MEDS ORDERED: METRONIDAZOLE 500 MG TABLET PO SCH (22:00)
== END 2017-09-08 19:47 | disposition home or self-care (01) | DRG 372 ==
LOC: ER 16:31 → INTOOBSV 20:53 → EH 20:53 → 4N 22:10 → OBSVTOIN 09-06 08:00
PROVIDERS: ADMIT Colon & Rectal Surgery; ATTEND Colon & Rectal Surgery
PROC: 0DBN8ZX Excision of Sigmoid Colon, Via Natural or Artificial Opening Endoscopic, Diagnostic (ICD-10-PCS; principal; 2017-09-07 13:00)
PROC: 0DBE8ZX Excision of Large Intestine, Via Natural or Artificial Opening Endoscopic, Diagnostic (ICD-10-PCS; 2017-09-07 13:00)
DX: A02.0 Salmonella enteritis (principal); K51.90 Ulcerative colitis, unspecified, without complications; D12.7 Benign neoplasm of rectosigmoid junction
CPT/HCPCS: 36415; 45380; 45385; 74177; 80048; 80053; 80307; 810; 81001; 82272; 82550; 83690; 85025; 85027; 86256; 87040; 87045; 87077; 87177; 87186; 87205; 87493; 87804; 88305; 90686; 96361; 96374; 96375; 99285; G0378; J0743; J1170; J1200; J1650; J1885; J2250; J2405; J2543; J2704; J3480; J3490; J7030

== ENCOUNTER 2017-11-08 22:31 | Emergency (ER) | payer BC ==
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
[2017-11-08 23:46] LABS: ABSOLUTE EOSINOPHILS # (AUTO) 0.2 10^3/uL (0.0-0.6); ABSOLUTE LYMPHOCYTES (AUTO) 2.9 10^3/uL (0.5-4.7); ABSOLUTE MONOCYTES (AUTO) 0.6 10^3/uL (0.1-1.4); ABSOLUTE NEUT (AUTO) 5.9 10^3/uL (1.7-8.2); BASOPHILS % (AUTO) 0.4 % (0-2); EOSINOPHILS % (AUTO) 2.4 % (0-6); HEMATOCRIT 46.8 % (37.9-51.0); HEMOGLOBIN 16.4 g/dL (13.5-17.0); LYMPHOCYTES % (AUTO) 30.3 % (13-45); MEAN CORPUSCULAR HEMOGLOBIN 32.3 pg (27.0-33.4); MEAN CORPUSCULAR VOLUME 93 fl (80-97); MONOCYTES % (AUTO) 6.2 % (3-13); PLATELET COUNT 245 10^3/uL (150-450); RED BLOOD COUNT 5.06 10^6/uL (4.35-5.55); SEGMENTED NEUTROPHILS % (AUTO) 60.7 % (42-78); TOTAL CELLS COUNTED % (AUTO) 100 %; WHITE BLOOD COUNT 9.7 10^3/uL (4.0-10.5)
[2017-11-08 23:47] LABS: APPEARANCE,URINE CLEAR; BILIRUBIN,URINE NEGATIVE (NEGATIVE); COLOR,URINE STRAW; GLUCOSE, URINE NEGATIVE (NEGATIVE); KETONES,URINE NEGATIVE (NEGATIVE); LEUKOCYTE ESTERASE,URINE NEGATIVE (NEGATIVE); NITRITE,URINE NEGATIVE (NEGATIVE); PROTEIN,URINE NEGATIVE (NEGATIVE); URINE SPECIFIC GRAVITY 1.008; UROBILINOGEN,URINE NEGATIVE mg/dL (<2.0)
[2017-11-08 23:53] LABS: ALANINE AMINOTRANSFERASE 51 U/L (21-72); ALBUMIN 5.1 g/dL (3.5-5.0); ALCOHOL 190 mg/dL (NONE DETECTED); ALKALINE PHOSPHATASE 53 U/L (38-126); ANION GAP 14 (5-19); ASPARTATE AMINO TRANSFERASE 34 U/L (17-59); BILIRUBIN,DIRECT 0.2 mg/dL (0.0-0.4); BILIRUBIN,TOTAL 0.2 mg/dL (0.2-1.3); BLOOD UREA NITROGEN 8 mg/dL (7-20); CARBON DIOXIDE 29 mmol/L (22-30); CHLORIDE 105 mmol/L (98-107); GLUCOSE 88 mg/dL (75-110); POTASSIUM 4.3 mmol/L (3.6-5.0); SODIUM 148.3 mmol/L (137-145)
[2017-11-08 23:59] LABS: ACETAMINOPHEN < 10 ug/mL (10-30); SALICYLATE < 1.0 mg/dL (2.0-20.0)
[2017-11-09] LABS: URINE AMPHETAMINES SCREEN NEGATIVE; URINE BARBITURATES SCREEN NEGATIVE; URINE BENZODIAZEPINES SCREEN NEGATIVE; URINE COCAINE SCREEN NEGATIVE; URINE MARIJUANA (THC) SCREEN NEGATIVE; URINE METHADONE SCREEN NEGATIVE; URINE PHENCYCLIDINE SCREEN NEGATIVE
--- NOTE | 2017-11-09 01:30 | EKG REPORT ---
SEVERITY:- NORMAL ECG - SINUS RHYTHM : Confirmed by: Zunilda Beckham MD 09-Nov-2017 01:30:19
[2017-11-09 08:54] VITALS: BP 115/70
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
--- NOTE | 2017-11-12 11:38 | EKG REPORT ---
SEVERITY:- NORMAL ECG - SINUS RHYTHM : Confirmed on behalf of: Micheal Barboza MD 12-Nov-2017 11:38:18
== END 2017-11-09 08:53 | disposition home or self-care (01) ==
LOC: ER 22:31
DX: R45.851 Suicidal ideations (principal); F32.9 Major depressive disorder, single episode, unspecified; F10.229 Alcohol dependence with intoxication, unspecified; F41.9 Anxiety disorder, unspecified
CPT/HCPCS: 36415; 80053; 80307; 81001; 85025; 93005; 93010; 99285

== ENCOUNTER 2018-12-23 18:13 | Emergency (ER) | payer BC ==
[2018-12-23 18:39] VITALS: BP 122/83
[2018-12-23] MEDS ORDERED: METOCLOPRAMIDE HCL ORAL SOLN 10 MG/10 ML UDCUP PO ONE (21:17)
[2018-12-23] MEDS ORDERED: LIDOCAINE 2% VISCOUS SOLN 20 ML UDCUP PO ONE (21:17)
[2018-12-23] MEDS ORDERED: MAG HYDROX/AL HYDROX/SIMETH SUSP 30 ML UDCUP PO ONE (21:17)
--- NOTE | 2018-12-23 21:18 | ER Document Report ---
ED Medical Screen (RME) - General Chief Complaint: Chest Pain Stated Complaint: CHEST DISCOMFORT Time Seen by Provider: 12/23/18 21:13 Primary Care Provider: ERIKA CHAUHAN MD [ACTIVE STAFF] - Follow up in 1 week Notes: Patient is a 28-year-old who presents to the emergency department with an uncomfortable feeling in his chest. Yesterday he had left-sided chest pressure and he forgot to take his Nexium in the morning. He states that he is felt a burping feeling. Today his chest pressure was more in his epigastric area. He denies any shortness of breath, nausea, vomiting, or diarrhea. He has a past medical history of ulcerative colitis and GERD. He does see Dr. Walker manages his ulcerative colitis. TRAVEL OUTSIDE OF THE [place] 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 Denies recent unintentional weight loss. Denies fever, chills, or sweats. EENT: Denies eye, ear, throat, or mouth pain, discharge, or symptoms. Denies nasal or sinus congestion. CARDIOVASCULAR: See HPI RESPIRATORY: Denies shortness of breath, cough, congestion, difficulty breathing, or wheezing. GASTROINTESTINAL: See HPI GENITOURINARY: Denies difficulty urinating, burning, blood in urine, urgency or frequency. MUSCULOSKELETAL: Denies neck and back pain. Denies joint pain or swelling. SKIN: Denies rash, itchiness, or lesions HEMATOLOGIC : Denies easy bruising or bleeding. LYMPHATIC: Denies swollen, painful, enlarged glands. NEUROLOGICAL: Denies no numbness or tingling denies weakness. Denies headache. Denies altered mental status. Denies alteration in speech. PSYCHIATRIC: Denies stress, anxiety, alteration in sleep patterns, or depression. All other systems reviewed and negative. Physical Exam - Vital signs Vitals: Temp Pulse Resp BP Pulse Ox 98.3 F 56 L 16 122/83 99 12/23/18 18:37 12/23/18 18:37 12/23/18 18:37 12/23/18 18:37 12/23/18 18:37 - Notes Notes: PHYSICAL EXAMINATION: GENERAL: Appears well, healthy, well-nourished, no acute distress. HEAD: Normocephalic, atraumatic. EYES: PERRL, conjunctiva normal, all extraocular movements intact, sclera nonicteric ENT: Moist mucous membranes. NECK: Supple, no noticeable swelling, redness, rash. Normal range of motion. LUNGS: Equal breath sounds bilaterally and clear to auscultation. No wheezes rales or rhonchi. CARDIOVASCULAR: S1-S2, regular rate, regular rhythm. Radial pulses 2+, normal. ABDOMEN: Normoactive bowel sounds. Soft, tender epigastric area, no guarding, no rebound tenderness, and no masses palpated. EXTREMITIES: Normal strength and range of motion, no pitting or edema. No cyanosis. NEUROLOGICAL: Moves all extremities upon command. Strength 5/5 in all extremities. PSYCH: Normal mood, normal affect. SKIN: Warm, dry. No rash, lesions, ulcerations noted. Normal skin turgor. Course - Re-evaluation Re-evalutation: 12/24/18 00:22 Patient's chemistries are unremarkable. His chest x-ray is normal. His troponin is negative, although I have a very low ACS. His exam is most consistent with gastroesophageal reflux disease. His chemistries are grossly unremarkable. He will be sent home with Carafate to add to his regimen since he is already on Nexium. He will follow-up with Dr. Chauhan in regards to this visit. Verbal discharge instructions were given to the patient. They verbalized understanding. They are stable for discharge. - Vital Signs Vital signs: Temp Pulse Resp BP Pulse Ox 98.3 F 56 L 16 122/83 99 12/23/18 18:37 12/23/18 18:37 12/23/18 18:37 12/23/18 18:37 12/23/18 18:37 - Laboratory Result Diagrams: 12/23/18 23:19 12/23/18 23:19 Laboratory results interpreted by me: 12/23/18 23:19 ALT 79 H Albumin 5.1 H - EKG Interpretation by Me Additional EKG results interpreted by me: 12/23/18 Sinus bradycardia. Rate 58. MA 164; QRS 92; QT 400; QTC 393. No ST elevations or depressions. Doctor's Discharge - Discharge Clinical Impression: Chest pressure, Epigastric pain Condition: Stable Additional Instructions: Your seen today in the emergency department for chest pressure and epigastric pain. Most likely cause of your symptoms are your reflux disease. Please follow-up with Dr. Shane in regards to this visit. Carafate, medication to help with your stomach has been added to your regimen. Please take 1 tablet 30 minutes prior to each meal and 1 tablet before bed. If you have worsening symptoms, chest pain, difficulty breathing, or any symptoms that are worrisome to you, please return to the emergency department. Prescriptions: Sucralfate [Carafate 1 gm Tablet] 1 gm PO ACHS #90 tablet Referrals: ERIKA CHAUHAN MD [ACTIVE STAFF] - Follow up in 1 week
--- NOTE | 2018-12-23 22:02 | RADIOLOGY REPORT (SQ) ---
EXAM DESCRIPTION: XR CHEST 2 VIEWS COMPLETED DATE/TME: 12/23/2018 21:17 CLINICAL HISTORY: 28 years, Male, chest pressure Findings: The heart is not enlarged. No consolidation or pleural effusion. Lungs are clear. No pneumothorax. IMPRESSION: No acute disease.
[2018-12-23 23:41] LABS: ABSOLUTE EOSINOPHILS # (AUTO) 0.3 10^3/uL (0.0-0.6); ABSOLUTE LYMPHOCYTES (AUTO) 3.3 10^3/uL (0.5-4.7); ABSOLUTE MONOCYTES (AUTO) 0.8 10^3/uL (0.1-1.4); ABSOLUTE NEUT (AUTO) 4.8 10^3/uL (1.7-8.2); BASOPHILS % (AUTO) 0.5 % (0-2); EOSINOPHILS % (AUTO) 2.8 % (0-6); HEMATOCRIT 47.8 % (37.9-51.0); HEMOGLOBIN 16.7 g/dL (13.5-17.0); LYMPHOCYTES % (AUTO) 36.1 % (13-45); MEAN CORPUSCULAR HEMOGLOBIN 31.9 pg (27.0-33.4); MEAN CORPUSCULAR VOLUME 91 fl (80-97); MONOCYTES % (AUTO) 8.3 % (3-13); PLATELET COUNT 212 10^3/uL (150-450); RED BLOOD COUNT 5.25 10^6/uL (4.35-5.55); RED CELL DISTRIBUTION WIDTH 12.8 % (11.5-14.0); SEGMENTED NEUTROPHILS % (AUTO) 52.3 % (42-78); TOTAL CELLS COUNTED % (AUTO) 100 %; WHITE BLOOD COUNT 9.2 10^3/uL (4.0-10.5)
[2018-12-23 23:58] LABS: ALANINE AMINOTRANSFERASE 79 U/L (21-72); ALBUMIN 5.1 g/dL (3.5-5.0); ALKALINE PHOSPHATASE 45 U/L (38-126); ANION GAP 9 (5-19); ASPARTATE AMINO TRANSFERASE 50 U/L (17-59); BILIRUBIN,DIRECT 0.1 mg/dL (0.0-0.4); BLOOD UREA NITROGEN 13 mg/dL (7-20); CALCIUM 10.1 mg/dL (8.4-10.2); CARBON DIOXIDE 30 mmol/L (22-30); CHLORIDE 99 mmol/L (98-107); GLUCOSE 80 mg/dL (75-110); POTASSIUM 4.3 mmol/L (3.6-5.0); SODIUM 137.8 mmol/L (137-145); TOTAL PROTEIN 7.9 g/dL (6.3-8.2)
--- NOTE | 2018-12-24 07:53 | EKG REPORT ---
SEVERITY:- NORMAL ECG - SINUS RHYTHM : Confirmed by: Micheal Barboza MD 24-Dec-2018 07:52:58
== END 2018-12-24 01:02 | disposition home or self-care (01) ==
LOC: ER 18:13
DX: R07.9 Chest pain, unspecified (principal); R10.13 Epigastric pain
CPT/HCPCS: 93005; 99285; 36415; 85025; 80053; 84484; 71046; 93010; J3490

== ENCOUNTER 2019-01-03 10:14 | Day surgery (SDC) | payer BC ==
[2019-01-03 12:05] VITALS: BP 116/77
--- NOTE | 2019-01-03 13:17 | Operative Report ---
Operative Report DATE OF SURGERY: 01/03/19 Operative Report: The risks benefits and alternatives of the procedure explained to the patient in detail and informed consent is obtained.A GIF Olympus video scope was inserted into the patient's mouth and hypopharynx, the esophagus is identified intubated and insufflated, the scope was then advanced through the esophagus stomach and duodenum, retroflexion maneuver is done, the esophagus stomach and first and second portions of the duodenum examined. PREOPERATIVE DIAGNOSIS: Noncardiac chest pain. Gastroesophageal reflux disease POSTOPERATIVE DIAGNOSIS: Distal esophagitis, Bourbon classification grade a. Gastritis status post biopsy for Helicobacter pylori OPERATION: EGD with biopsy SURGEON: ERIKA CHAUHAN ANESTHESIA: LMAC TISSUE REMOVED OR ALTERED: As noted above. COMPLICATIONS: None. ESTIMATED BLOOD LOSS: None. INTRAOPERATIVE FINDINGS: As noted above. PROCEDURE: Patient tolerated the procedure well. No immediate postprocedure comp occasions are noted. Patient discharged in good condition. Discharge date 01/03/2019. Discharge diet: Regular. Discharge activity: Regular. 2-3-week follow-up to discuss findings. Patient is instructed to call the office or proceed to the emergency room should there be any further proximal questions. Wait on the pathology.
== END 2019-01-03 11:51 | disposition home or self-care (01) ==
LOC: END 10:14
PROVIDERS: ATTEND Internal Medicine Gastroenterology
DX: K21.0 Gastro-esophageal reflux disease with esophagitis (principal); K29.50 Unspecified chronic gastritis without bleeding; J45.909 Unspecified asthma, uncomplicated; F17.210 Nicotine dependence, cigarettes, uncomplicated; M06.9 Rheumatoid arthritis, unspecified; Z79.899 Other long term (current) drug therapy
CPT/HCPCS: 43239; 88305 ×2; J2704; 731